=== PATIENT | female | born 2000 | race Caucasian/White ===

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

== ENCOUNTER 2020-02-13 21:54 | Emergency (ER) | payer BC ==
[2020-02-13] MEDS ORDERED: DIPH/PERTUSS(ACELL)/TETANUS VAC/PF 0.5 ML SYR (>=10YO) IM ONE (22:17)
--- NOTE | 2020-02-13 22:22 | ER Document Report ---
ED General - General Chief Complaint: Psych Problem Stated Complaint: PSYCH Time Seen by Provider: 02/13/20 21:58 Primary Care Provider: IRINA CELIS NP [Primary Care Provider] - Follow up as needed Information source: Patient TRAVEL OUTSIDE OF THE [place] IN LAST 30 DAYS: No - HPI Notes: Patient is a 20-year-old female with a history of bipolar, depression, anxiety, and PTSD who presents with suicidal ideation and self harming behavior. Around 7:30 PM this evening patient used a razor blade and cut her right forearm multiple times. She endorses thoughts of killing herself but does not have a plan. She denies homicidal ideation and hallucinations. She reports a prior psych hospitalization in 2018 for suicide attempt. Patient's tetanus shot is not up-to-date. She denies tobacco use. She denies taking any medications regularly. She currently lives with her parents and [place] and works at the [employer] in [place]. - Related Data Allergies/Adverse Reactions: No Known Allergies Allergy (Verified 02/13/20 21:57) Home Medications: DEPRESSION MEDS Past Medical History - General Information source: Patient - Social History Smoking Status: Never Smoker Frequency of alcohol use: Heavy Drug Abuse: None Family History: Reviewed & Not Pertinent Patient has homicidal ideation: No Renal/ Medical History: Denies: Hx Peritoneal Dialysis Psychiatric Medical History: Reports: Hx Bipolar Disorder - Immunizations Immunizations up to date: Yes Hx Diphtheria, Pertussis, Tetanus Vaccination: Yes Review of Systems - Review of Systems Constitutional: No symptoms reported EENT: No symptoms reported Cardiovascular: No symptoms reported Respiratory: No symptoms reported Gastrointestinal: No symptoms reported Genitourinary: No symptoms reported Female Genitourinary: No symptoms reported Musculoskeletal: No symptoms reported Skin: See HPI Hematologic/Lymphatic: No symptoms reported Neurological/Psychological: See HPI Physical Exam - Vital signs Vitals: Temp Pulse Resp BP Pulse Ox 99.9 F 119 H 16 123/80 100 02/13/20 22:00 02/13/20 22:00 02/13/20 22:00 02/13/20 22:00 02/13/20 22:00 - Notes Notes: PHYSICAL EXAMINATION: VITALS: Vitals reviewed and within normal limits. GENERAL: Well-appearing, well-nourished and in no acute distress. HEAD: Atraumatic, normocephalic. EYES: Pupils equal, round, and reactive to light, extraocular movements intact, sclera anicteric, conjunctiva are normal. ENT: Nares patent. Moist mucous membranes. NECK: Normal range of motion, supple without lymphadenopathy. LUNGS: Breath sounds clear to auscultation bilaterally and equal. No wheezes, rales, or rhonchi. HEART: Regular, rate, and rhythm without murmurs. ABDOMEN: Soft, nontender, normoactive bowel sounds. No guarding, no rebound. No masses appreciated. EXTREMITIES: Many superficial lacerations to entire right forearm. Palpable radial pulse, cap refill less than 2 seconds. Full range of motion of the right fingers hand and wrist. Normal range of motion, no pitting or edema of all other extremities. No cyanosis. NEUROLOGICAL: No focal neurological deficits. Moves all extremities spontaneously and on command. PSYCH: Normal mood, normal affect. SKIN: Warm, Dry, normal turgor, no rashes or lesions noted. Course - Re-evaluation Re-evalutation: Patient is a 20-year-old female with a history of bipolar, depression, anxiety, and PTSD who presents with suicidal ideation and cutting behavior. Vital signs are within normal limits. Many superficial lacerations to the entire right forearm with palpable pulses and good cap refill. One of the lacerations has a good amount of separation and will be closed using Dermabond. Procedure tolerated well. 02/14/20 03:14 CBC unremarkable and within normal limits. CMP shows a mildly elevated ALT of 59, otherwise values are within normal limits. UA shows moderate blood, trace leukocyte esterase and 1+ bacteria. Patient is asymptomatic, urine culture ordered. UDS negative. Salicylate, tylenol and alcohol levels are all negative. Patient is medically cleared and will see psych in the morning. IVC paperwork completed and notorized. - Vital Signs Vital signs: Temp Pulse Resp BP Pulse Ox 98 F 108 H 12 130/73 H 100 02/14/20 06:19 02/14/20 06:19 02/14/20 06:19 02/14/20 06:19 02/14/20 06:19 - Laboratory Result Diagrams: 02/13/20 23:35 02/13/20 23:00 Laboratory results interpreted by me: 02/13/20 02/13/20 02/13/20 22:20 23:00 23:35 RBC 5.29 H Hgb 16.1 H Carbon Dioxide 20 L ALT 59 H Urine Blood MODERATE H Ur Leukocyte Esterase TRACE H Salicylates < 1.0 L Acetaminophen < 10 L - EKG Interpretation by Me Additional EKG results interpreted by me: Sinus tachycardia with a rate of 100. QTc 413. Normal axis. No T wave inversions or ST segment changes in consecutive leads. Procedures - Laceration/Wound Repair Right Arm Wound length (cm): 6 Wound's Depth, Shape: Superficial Laceration pre-procedure: Shur-Clens applied Wound Repaired With: Dermabond Post-procedure NV exam normal: Yes Complications: No Notes: The wound is 6 cmto her dorsal mid right forearm. The wound was copiously irrigated with normal saline and surgical cleanser. The wound was explored for foreign bodies and none were found. The wound was prepped and draped in the normal sterile fashion. The edges were reapproximated using Dermabond. Bleeding was well controlled and the patient tolerated the procedure well. Wound dressed with nonadhesive dressing and Coband. Discharge - Discharge Clinical Impression: Suicidal ideation, Self-harming behavior, Deliberate self-cutting Condition: Stable Disposition: PSYCH HOSP/UNIT Referrals: IRINA CELIS NP [Primary Care Provider] - Follow up as needed
[2020-02-13 23:30] LABS: ALBUMIN 4.5 g/dL (3.5-5.0); ALKALINE PHOSPHATASE 85 U/L (38-126); ANION GAP 11 (5-19); ASPARTATE AMINO TRANSFERASE 35 U/L (14-36); BILIRUBIN,DIRECT 0.2 mg/dL (0.0-0.4); BILIRUBIN,TOTAL 0.5 mg/dL (0.2-1.3); BLOOD UREA NITROGEN 9 mg/dL (7-20); CALCIUM 9.8 mg/dL (8.4-10.2); CARBON DIOXIDE 20 mmol/L (22-30); CHLORIDE 107 mmol/L (98-107); GLUCOSE 105 mg/dL (75-110); TOTAL PROTEIN 7.8 g/dL (6.3-8.2)
[2020-02-13 23:32] LABS: ACETAMINOPHEN < 10 ug/mL (10-30); ALCOHOL < 10 mg/dL (NONE DETECTED); SALICYLATE < 1.0 mg/dL (2.0-20.0)
[2020-02-13 23:55] LABS: APPEARANCE,URINE CLEAR; BILIRUBIN,URINE NEGATIVE (NEGATIVE); COLOR,URINE YELLOW; GLUCOSE, URINE NEGATIVE (NEGATIVE); KETONES,URINE NEGATIVE (NEGATIVE); LEUKOCYTE ESTERASE,URINE TRACE (NEGATIVE); NITRITE,URINE NEGATIVE (NEGATIVE); PROTEIN,URINE NEGATIVE (NEGATIVE); URINE SPECIFIC GRAVITY 1.013; UROBILINOGEN,URINE NEGATIVE mg/dL (<2.0)
[2020-02-13 23:59] LABS: ABSOLUTE LYMPHOCYTES (AUTO) 1.8 10^3/uL (0.5-4.7); ABSOLUTE MONOCYTES (AUTO) 0.5 10^3/uL (0.1-1.4); ABSOLUTE NEUT (AUTO) 6.4 10^3/uL (1.7-8.2); BASOPHILS % (AUTO) 0.4 % (0-2); EOSINOPHILS % (AUTO) 0.1 % (0-6); HEMATOCRIT 46.5 % (36.0-47.0); HEMOGLOBIN 16.1 g/dL (12.0-15.5); LYMPHOCYTES % (AUTO) 20.9 % (13-45); MEAN CORPUSCULAR HEMOGLOBIN 30.5 pg (27.0-33.4); MEAN CORPUSCULAR HGB CONC 34.7 g/dL (32.0-36.0); MEAN CORPUSCULAR VOLUME 88 fl (80-97); MONOCYTES % (AUTO) 5.5 % (3-13); PLATELET COUNT 167 10^3/uL (150-450); RED BLOOD COUNT 5.29 10^6/uL (3.72-5.28); RED CELL DISTRIBUTION WIDTH 13.2 % (11.5-14.0); SEGMENTED NEUTROPHILS % (AUTO) 73.1 % (42-78); TOTAL CELLS COUNTED % (AUTO) 100 %; WHITE BLOOD COUNT 8.8 10^3/uL (4.0-10.5)
[2020-02-14 00:03] LABS: URINE AMPHETAMINES SCREEN NEGATIVE; URINE BARBITURATES SCREEN NEGATIVE; URINE BENZODIAZEPINES SCREEN NEGATIVE; URINE COCAINE SCREEN NEGATIVE; URINE MARIJUANA (THC) SCREEN NEGATIVE; URINE METHADONE SCREEN NEGATIVE; URINE PHENCYCLIDINE SCREEN NEGATIVE
--- NOTE | 2020-02-14 09:39 | ER Document Report ---
Doctor's Note Notes: Rounded on patient today patient denies any acute needs. Patient will be followed by mental health team. We are waiting on the disposition.
--- NOTE | 2020-02-14 18:58 | EKG REPORT ---
SEVERITY:- OTHERWISE NORMAL ECG - SINUS TACHYCARDIA : Confirmed by: Devyn Sanchez MD 14-Feb-2020 18:58:12
--- NOTE | 2020-02-14 23:40 | PSYCHOLOGICAL NOTE ---
Psych Note - Psych Note Date seen by psych provider: 02/14/20 Time seen by psych provider: 11:30 Psych Note: [id number] Reason for Consult: SI, cutting, depression Consent Permissions: lEmer Chavez, father, Patient is a 20 year old female who presented to the [facility] ED today via EMS due to suicidal ideations. Patient reports standing on the edge of a bridge contemplating jumping off. Patient reports she was triggered by the election and state her roommate brought home a Trump sign. Patient has a history of PTSD, Bipolar disorder, and Anxiety and has been inpatient to [facility] in 2018. Patient reports she was prescribed Sertraline, but stopped months ago. Patient reports she wants to and will stop taking her medications when these thoughts arise. Patient states she will only remain compliant with medication regimen if she is in a facility requiring her to take her medications. Patient has a history of medication noncompliance. Patient has been cutting her arms and still endorses thoughts of suicide. Patient is currently involved in outpatient therapy with [facility] and attends sessions weekly. Elmer Chavez, father, at [phone] at [phone]. Voicemail left requesting call back at earliest convenience. [id number]: Father reports patient is a cutter and has kept hidden from parents for years. He states she does not open up about things bothering her and isolated and cuts herself. Reports patient was admitted to [facility] in 2018 after cutting her legs. He denies alcohol and drug use. States patient does not take her prescription medications. Patient does not feel like the medications work, but also does not give them enough time to work either. Father reports patient was at the bridge down the street and called her girl friend to get her and had her girlfriend call EMS. Patient has a history of PTSD, Bipolar, and Anxiety. Father reports visiting patient today and states patient said it was more of the election and is worried about if she will be allowed to get and such. Parents found out information after going to see patient in the ED due to patient being guarded and not sharing feeling with anyone. Father notes patient has an implant control and has been on her period for 2 months straight. Patient was alert and oriented to self, person, place, time and situation. Mood was depressed with congruent and flat affect. She denies current HI, but reports current SI. Patient did not appear to be responding to internal stimuli as evidenced by fair eye contact and answering questions appropriately when addressed. Thought processes are not linear or organized evidenced by medication noncompliance and stating she will continue to not take unless in a facility. Conversational speech was within normal limits for rate, tone and prosody. Intellectual abilities are estimated to be average. Insight, judgment and impulse control were poor as evidenced by stating she was not going to take medications unless forced and by stating she stopped medications due to wanting to . Clinical Presentation: suicidal ideations, medication noncompliance, cutting IVC Criteria per [place] GS 122C Dangerous to others Within the relevant past the individual No has inflicted or attempted to inflict or threatened to inflict serious bodily harm on another AND No that there is a reasonable probability that this conduct will be repeated. OR No has acted in such a way as to create a substantial risk of serious bodily harm to another AND No that there is a reasonable probability that this conduct will be repeated. OR No has engaged in extreme destruction of property AND NO that there is a reasonable probability that this conduct will be repeated. Previous episodes of dangerousness to others, when applicable, may be considered when determining reasonable probability of future dangerous conduct. Clear, cogent, and convincing evidence that an individual has committed a homicide in the relevant past is prima facie evidence of dangerousness to others. Dangerous to self Within the relevant past the individual has done any of the following: acted in such a way as to show ALL of the following: No The individual would be unable without care, supervision, and the continued assistance of others not otherwise available, to exercise self- control, judgment, and discretion in the conduct of the individual's daily responsibilities and social relations or to satisfy the individual's need for nourishment, personal or medical care, fci, or self-protection and safety. AND No There is a reasonable probability of the individual suffering serious physical debilitation within the near future unless adequate treatment is given. A showing of behavior that is grossly irrational, of actions that the individual is unable to control, of behavior that is grossly inappropriate to the situation, or of other evidence of severely impaired insight and judgment shall create a prima facie inference that the individual is unable to care for himself or herself. OR Yes has attempted suicide or threatened suicide EMS found patient standing on the side of a bridge, contemplating jumping AND Yes that there is a reasonable probability of suicide unless adequate treatment is given Patient continues to endorse medication noncompliance unless in a facility that makes her take OR Yes has mutilated himself or herself or attempted to mutilate himself or herself Patient has been cutting her arms AND Yes that there is a reasonable probability of serious self-mutilation unless adequate treatment is given. Patient has been cutting and will continue due to political stressors NOTE: Previous episodes of dangerousness to self, when applicable, may be considered when determining reasonable probability of physical debilitation, suicide, or self-mutilation. Impression\plan: Patient is recommended for IVC. patient continues to endorse suicidal ideation. Patient presented after engaging in self harm cutting and was found on a bridge. Patient reports she was thinking about jumping from the bridge. Patient is currently off psychiatric mediations. Dr. Hay was consulted to care management of this patient; attending physicians in agreement with recommendations and disposition. Case management: Patient's paperwork was sent to [facility]; paperwork was submitted and transportation was requested
--- NOTE | 2020-02-15 02:38 | ER Document Report ---
Doctor's Note Notes: Patient has received placement at [facility] and will be transported by Jeromy VALLEJO paperwork completed. 02/15/20 02:29 Patient reassessed and she reports feeling much better. She has no complaints at this time. PHYSICAL EXAMINATION: VITALS: Reviewed and within normal limits. GENERAL: Well-appearing, well-nourished and in no acute distress. HEAD: Atraumatic, normocephalic. LUNGS: Normal work of breathing EXTREMITIES: Bandaged right forearm. No pitting or edema. No cyanosis. NEUROLOGICAL: No focal neurological deficits. Moves all extremities spontaneously and on command. PSYCH: Normal mood, normal affect. Patient is stable and safe for transport to [facility].
[2020-02-15 02:48] VITALS: BP 120/85
== END 2020-02-15 02:32 ==
LOC: ER 21:54
DX: S51.811A Laceration without foreign body of right forearm, initial encounter (principal); X78.8XXA Intentional self-harm by other sharp object, initial encounter; F32.9 Major depressive disorder, single episode, unspecified; Z23 Encounter for immunization
CPT/HCPCS: 36415; 80053; 80307; 81001; 84703; 85025; 87086; 90471; 90715; 93005; 93010; 99285